=== PATIENT | male | born 1955 | race Caucasian/White ===

== ENCOUNTER 2016-11-29 02:43 | Emergency (ER) | payer MEDICAID ==
[~2016-11-29] VITALS: Ht 165.1 cm; Wt 68.0 kg
[2016-11-29 02:52] VITALS: BP 130/89
[2016-11-29] MEDS ORDERED: CYCLOBENZAPRINE HCL 10 MG TAB PO ONE (05:15)
== END 2016-11-29 06:00 | disposition home or self-care (01) ==
LOC: EDBD 02:43 → ER 02:46
DX: M47.892 Other spondylosis, cervical region (principal); M25.512 Pain in left shoulder; M25.552 Pain in left hip; M10.9 Gout, unspecified; I10 Essential (primary) hypertension; F17.210 Nicotine dependence, cigarettes, uncomplicated

== ENCOUNTER 2017-06-05 04:38 | Emergency (ER) | payer MEDICAID ==
[~2017-06-05] VITALS: Ht 165.1 cm; Wt 69.4 kg
[2017-06-05 06:17] VITALS: BP 126/73
== END 2017-06-05 06:17 | disposition home or self-care (01) ==
LOC: EDBD 04:38 → ER 04:40
DX: I10 Essential (primary) hypertension (principal); Z76.0 Encounter for issue of repeat prescription; F17.210 Nicotine dependence, cigarettes, uncomplicated; M10.9 Gout, unspecified

== ENCOUNTER 2017-09-20 15:29 | Emergency (ER) | payer MEDICAID ==
[~2017-09-20] VITALS: Ht 162.6 cm; Wt 68.0 kg
[2017-09-20 18:47] VITALS: BP 119/65
[2017-09-20] MEDS ORDERED: cefTRIAXone SOD 1,000 MG VL IM ONE (19:45)
== END 2017-09-20 19:43 | disposition home or self-care (01) ==
LOC: ER 15:33
DX: L03.116 Cellulitis of left lower limb (principal); L03.115 Cellulitis of right lower limb; M10.9 Gout, unspecified; I10 Essential (primary) hypertension; F17.210 Nicotine dependence, cigarettes, uncomplicated; M19.90 Unspecified osteoarthritis, unspecified site
CPT/HCPCS: 93970; 96372; 99284; J0696